=== PATIENT | female | born 1950 | race Caucasian/White ===

== ENCOUNTER 2017-11-16 10:17 | Emergency (ER) | payer OTHER ==
[~2017-11-16] VITALS: Ht 157.5 cm; Wt 77.1 kg
[~2017-11-16 10:17] MED LIST: B-121000 MCG PO; CIPRO 500MG TA500 MG PO; D-31000 IU PO; FISH OIL500 MG PO; GLUCOSAMINE CH1 EAC6 PO; GLUCOSAMINE500 MG PO; MULTI VITAMINS1 TAB PO; VICODIN5-300 PO; VITAMIN B-121000 MC1 PO; ZITHROMAX Z-PA250 M1 PO
[2017-11-16 11:34] LABS: ABSOLUTE BASOPHIL COUNT 0 /CUMM (0.0-0.2); ABSOLUTE EOSINOPHIL COUNT 0.1 /CUMM (0.0-0.7); ABSOLUTE GRANULOCYTE CT 7.4 /CUMM (1.4-6.5); ABSOLUTE LYMPH COUNT 0.7 /CUMM (1.2-3.4); ABSOLUTE MONOCYTE COUNT 0.4 /CUMM (0.10-0.60); BASOPHIL % 0.3 % (0.0-2.0); EOSINOPHIL % 0.9 % (0-5); MEAN CORPUSCULAR HGB 30.3 PG (27.0-31.0); MEAN CORPUSCULAR HGB CONC 34.5 G/DL (33.0-37.0); MEAN CORPUSCULAR VOLUME 87.8 FL (81.0-99.0); MEAN PLATELET VOLUME 7.2 FL (7.4-10.4); PLATELET COUNT 301 /CUMM (130-400); RBC DISTRIBUTION WIDTH 13.1 % (11.5-14.5); RED BLOOD CELL CT 4.34 /CUMM (4.20-5.40); WHITE BLOOD CELL COUNT 8.6 /CUMM (4.8-10.8)
--- NOTE | 2017-11-16 11:39 | ED SYNCOPE COMPLAINT ---
History of Present Illness General Chief Complaint: Syncope and Near-Syncope Stated Complaint: SYNCOPE EPISODE THIS AM/ WEAKNESS Source: patient, family, old records Exam Limitations: no limitations Vital Signs & Intake/Output Vital Signs & Intake/Output Vital Signs Date Time Temp Pulse Resp B/P B/P Pulse O2 O2 Flow FiO2 Mean Ox Delivery Rate 11/16 1411 98.2 78 18 110/70 98 Room Air 11/16 1120 Room Air 11/16 1024 79 109/71 11/16 1023 97.6 73 18 98/62 97 Room Air Allergies Coded Allergies: NO KNOWN ALLERGIES (05/16/17) Reconcile Medications Cyanocobalamin (Vitamin B-12) (Vitamin B-12) 1,000 MCG TABLET.ER 1 TAB PO DAILY supplement (Reported) Glucosamine/MSM/Chondroitin A (Glucosamine Chondroit MSM Tab) 500 MG-83 MG-400 MG TABLET 1 PO DAILY supplement (Reported) HYDROCODONE/ACETAMINOPHEN (Hydrocodon-Acetaminophen 5-325) 1 TAB TAB 1 TAB PO Q6H PRN pain Triage Note: PRESENTS TO ED FRO EVALUATION OF GENERALIZED WEAKNESS. SHE CHECKED HER BP THIS AM AND IT WAS 89/59. SHE ALSO REPORTS DIZZINES FOR SHE HAD TO LOWER HERSELF TO THE FLOOR AT ONE POINT. DENIED SYNCOPAL EPISODE. Triage Nurses Notes Reviewed? yes Timing: recent history Precipitating Factors: lightheadedness Context: became dizzy/fainted Episode Description: near syncope Loss of Consciousness: no loss of consciousness Associated Symptoms: dizziness, nausea/vomiting, weakness LMP (ages 10-50): post menopausal : No Patient currently breastfeeds: No HPI: Upon arising the patient complains complaint of being lightheaded. She got up and walked about and felt extreme lightheadedness that she was going to pass out with nausea and laid down on the floor. Once the past she took her blood pressure reports that it was in the mid 70s systolic. She denies fever chills vomiting diarrhea chest pain cough shortness breath headache dysuria rash bleeding previous episodes. Past History Travel History Traveled to [place] past 21 day No Medical History Any Pertinent Medical History? see below for history Neurological: NONE EENT: NONE Cardiovascular: NONE Respiratory: NONE Gastrointestinal: NONE Hepatic: NONE Renal: NONE Musculoskeletal: ankle fracture Psychiatric: NONE Endocrine: NONE Blood Disorders: NONE Cancer(s): NONE FOOD QUALITY TECHNICIAN/Reproductive: NONE History of MRSA: No History of VRE: No History of CDIFF: No Surgical History Surgical History: non-contributory Psychosocial History What is your primary language Slovak Tobacco Use: Never used Family History Hx Contributory? No Review of Systems Review of Systems Constitutional: Reports: see HPI, weakness. EENTM: Reports: no symptoms. Respiratory: Reports: no symptoms. Cardiovascular: Reports: no symptoms. GI: Reports: no symptoms. Genitourinary: Reports: no symptoms. Musculoskeletal: Reports: no symptoms. Skin: Reports: no symptoms. Neurological/Psychological: Reports: see HPI. All Other Systems: Reviewed and Negative Physical Exam Physical Exam General Appearance: well developed/nourished, alert, awake, anxious, comfortable Head: atraumatic, normal appearance Eyes: Bilateral: normal appearance, PERRL, EOMI. Ears, Nose, Throat: normal pharynx, normal ENT inspection, moist mucus membranes Neck: normal inspection, supple, full range of motion, no midline tenderness Respiratory: normal breath sounds, chest non-tender, no respiratory distress, quiet respiration, lungs clear Cardiovascular: regular rate/rhythm, normal peripheral pulses, norml femoral pulses equa Gastrointestinal: normal bowel sounds, soft, non-tender, no organomegaly Back: normal inspection, normal range of motion, no vertebral tenderness Extremities: normal inspection, normal capillary refill, normal range of motion, no edema Psychiatric: awake, alert, oriented x 3 Cranial Nerves: normal hearing, normal speech, PERRL Coordination/Gait: normal finger to nose, normal gait Motor/Sensory: no motor/sensory deficits Reflexes: 2+: bicep (R), bicep (L). Skin: intact, normal color, warm/dry Lymphatic: no anterior cervical monique Core Measures ACS in differential dx? No CVA/TIA Diagnosis: No Sepsis Present: No Sepsis Focused Exam Completed? No Progress Differential Diagnosis: drug induced syncope, orthostatic syncope, subarachnoid hem., TIA/CVA Plan of Care: Orders Procedure Date/time Status TROPONIN LEVEL 11/16 1415 Complete MISTAKE 11/16 1055 Active URINALYSIS 11/16 1055 Complete TROPONIN LEVEL 11/16 1055 Complete LIPASE 11/16 1055 Complete COMPREHENSIVE METABOLIC PANEL 11/16 1055 Complete CBC WITHOUT DIFFERENTIAL 11/16 1055 Complete EKG 11/16 1026 Active Laboratory Tests 11/16/17 1418: Troponin I < 0.01 11/16/17 1117: Urinalysis LIGHT H, Urine Color YEL, Urine Clarity CLEAR, Urine pH 6.0, Ur Specific [place] >= 1.030, Urine Protein 30 H, Urine Ketones TRACE H, Urine Nitrite NEG, Urine Bilirubin NEG@ICTO, Urine Urobilinogen 0.2, Ur Leukocyte Esterase SMALL H, Ur Microscopic SEDIMENT EXAMINED, Urine WBC 5-10 H, Ur Epithelial Cells RARE, Urine Mucus MOD H, Urine Hemoglobin NEG, Urine Glucose NEG 11/16/17 1116: Anion Gap 8, Estimated GFR > 60, BUN/Creatinine Ratio 24.3, Glucose 153 H, Calcium 10.2, Total Bilirubin 0.6, AST 18, ALT 28, Alkaline Phosphatase 52, Troponin I < 0.01, Total Protein 6.7, Albumin 3.9, Globulin 2.8, Albumin/ Globulin Ratio 1.4, Lipase 61, CBC w Diff NO MAN DIFF REQ, RBC 4.34, MCV 87.8, MCH 30.3, MCHC 34.5, RDW 13.1, MPV 7.2 L, Gran % 86.3 H, Lymphocytes % 7.6 L, Monocytes % 4.9, Eosinophils % 0.9, Basophils % 0.3, Absolute Granulocytes 7.4 H, Absolute Lymphocytes 0.7 L, Absolute Monocytes 0.4, Absolute Eosinophils 0.1 , Absolute Basophils 0 Diagnostic Imaging: Viewed by Me: Radiology Read, CT Scan. Discussed w/RAD: Radiology Read, CT Scan. Radiology Impression: no acute abnormality CXR Impression: no acute abnormality, no infiltrates Initial ED EKG: normal axis, normal intervals, normal p-waves, normal QRS complex, normal sinus rhythm, no ST T wave changes Prior EKG: unchanged Rhythm Strip: normal sinus rhythm Departure Departure Time of Disposition: 1500 Disposition: HOME OR SELF CARE Condition: Stable Clinical Impression Primary Impression: Near syncope Referrals: Arthur Melara MD (PCP/Family) Departure Forms: Customer Survey General Discharge Information
[2017-11-16 11:47] LABS: GRANULOCYTE % 86.3 % (42.2-75.2)
--- NOTE | 2017-11-16 11:50 | CT SCAN REPORT ---
EXAMINATION: CT HEAD WITHOUT CONTRAST CLINICAL INFORMATION: Near syncope. Evaluate for hemorrhage. COMPARISON: None TECHNIQUE: Contiguous axial imaging was performed from the skull base to vertex without intravenous administration of contrast. DLP: 537 mGy-cm FINDINGS: There is no evidence of an extra-axial collection. There is no evidence of intra or extra-axial hemorrhage. The ventricles and extra-axial CSF spaces are appropriate. Hernandez-white matter differentiation is normal. No mass, mass effect or infarct is seen. Review at bone windows is unremarkable. IMPRESSION: No acute intracranial pathology.
--- NOTE | 2017-11-16 11:52 | RADIOLOGY REPORT ---
EXAMINATION: XR PORTABLE CHEST CLINICAL INFORMATION: Near syncope. Hypotension. Evaluate for pneumonia. COMPARISON: Previous chest x-ray most recent April 2017 TECHNIQUE: Portable frontal view of the chest was obtained. FINDINGS: The cardiac silhouette is upper normal in size but stable. The thoracic aorta appears tortuous. Hilar and mediastinal contours are otherwise unremarkable. The lungs are clear. There is no pleural effusion or pneumothorax. There is curvature of the thoracic spine to the right and degenerative change. IMPRESSION: No evidence for acute disease in the chest.
[2017-11-16 15:40] VITALS: BP 109/64
== END 2017-11-16 15:40 ==
LOC: ERH 10:17
PROVIDERS: Emergency Medicine
DX: R55 Syncope and collapse (principal)
CPT/HCPCS: 71045; 81001; 93005; 93010; 96360